=== PATIENT | female | born 1980 | race African-American/Black ===

== ENCOUNTER 2020-09-14 20:38 | Emergency (ER) | payer OTHER ==
[2020-09-14 20:45] VITALS: BP 120/83
--- NOTE | 2020-09-14 21:05 | ED Physician Documentation ---
History of Present Illness - Stated complaint Stated Complaint: FEMALE - Chief complaint Chief Complaint: Wound - History obtained from History obtained from: Patient - History of Present Illness Timing: How many weeks ago (1) Pain level now: 3 Improved by: nothing Worsened by: palpation - Additonal information Additional information: patient c/o 1 week of perianal pain. she thinks it is a hemorrhoid and she says she has had hemorrhoids for many years, but never this painful nor persistent. she also noticed discharge earlier today from the lesion and thus is concerned about infection Review of Systems Constitutional: reports: Reviewed and negative GI: reports: Other (perianal pain) PD PAST MEDICAL HISTORY - Past Medical History Past Medical History: Yes - Present Medications Home Medications: Ambulatory Orders Medication Instructions Recorded Confirmed Pramoxine HCl [Proctofoam] 15 gm TP QID PRN #15 gm 09/14/20 clindamycin HCL [Clindamycin HCl] 300 mg PO Q6H #27 cap 09/14/20 - Allergies Allergies/Adverse Reactions: Allergies Allergy/AdvReac Type Severity Reaction Status Date / Time shellfish derived AdvReac Emesis Verified 09/14/20 20:46 PD ED PE NORMAL - Vitals Vital signs reviewed: Yes - General General: Alert and oriented X 3, No acute distress, Well developed/nourished - Abdomen Abdomen: Soft, Non tender PD ED PE EXPANDED - Female Female : Other (Small focus (1cm diameter) of mild swelling, moderate tende rness with scant purulent discharge. No fluctuance, no surrounding cellulitis changes) Female visual: 1 - swelling, tenderness - Rectal Rectal: Strapper present (JABARI Grewal) Results - Vitals Vitals: Vital Signs - 24 hr 09/14/20 09/14/20 20:40 21:06 Temperature 36.8 C 36.8 C Heart Rate 123 H 123 H Respiratory 17 17 Rate Blood Pressure 120/83 H 120/83 H O2 Saturation 100 100 Oxygen O2 Source Room air PD MEDICAL DECISION MAKING - ED course Complexity details: considered differential, d/w patient ED course: Small draining perianal abscess on exam without palpable margins beyond what is visualized (findings do not suggest larger abscess than what is seen and thus I+D not indicated at this time). Will rx antibiotic and rx topical For pain relief Departure - Departure Disposition: 01 Home, Self Care Clinical Impression: Perianal abscess Condition: Good Instructions: ED Harper Anal Abscess Abx Only Prescriptions: clindamycin HCL [Clindamycin HCl] 300 mg PO Q6H #27 cap Pramoxine HCl [Proctofoam] 15 gm TP QID PRN #15 gm PRN Reason: Pain Discharge Date/Time: 09/14/20 21:52
[2020-09-14] MEDS ORDERED: CLINDAMYCIN 150 MG CAPSULE PO STA (21:26)
[2020-09-14] MEDS ORDERED: DIBUCAINE 1% OINT 28 GM TUBE PR STA (21:26)
[2020-09-14] MEDS ORDERED: DIBUCAINE 1% OINT 28 GM TUBE ONE (21:49)
== END 2020-09-14 21:52 | disposition home or self-care (01) ==
LOC: ED 20:38
DX: K61.0 Anal abscess (principal)
CPT/HCPCS: 99282; 99283; A9270